=== PATIENT | female | born 1970 ===

== ENCOUNTER 2019-03-03 14:29 | Emergency (ER) | payer BC ==
[2019-03-03 14:41] VITALS: BP 104/69
--- NOTE | 2019-03-03 14:45 | UC ---
Lower Extremity/Ankle HPI - HPI Summary HPI Summary: 48 year old female presenting to laceration to between 5th toe and foot. [place] cut foot on rock when twisting foot. No head injury, no LOC. Unsure of last tetanus. PMH- none, no medications - History of Current Complaint Stated Complaint: R FOOT LAC Time Seen by Provider: 03/03/19 14:37 Hx Obtained From: Patient ?: No Onset/Duration: Sudden Onset, Lasting Minutes Severity Currently: Mild Pain Intensity: 3 Pain Scale Used: 0-10 Numeric Aggravating Factor(s): Standing, Ambulation Alleviating Factor(s): Rest Able to Bear Weight: Yes - Allergies/Home Medications Allergies/Adverse Reactions: Allergies Allergy/AdvReac Type Severity Reaction Status Date / Time No Known Allergies Allergy Verified 03/03/19 14:41 Home Medications: Home Medications NK [No Home Medications Reported] 03/03/19 [History Confirmed 03/03/19] PMH/Surg Hx/FS Hx/Imm Hx Previously Healthy: Yes - Family History Known Family History: Positive: Non-Contributory Review of Systems All Other Systems Reviewed And Are Negative: Yes Constitutional: Positive: Negative ENT: Positive: Negative Cardiovascular: Positive: Negative Genitourinary: Positive: Negative Motor: Positive: Negative Musculoskeletal: Positive: Arthralgia, Decreased ROM, Edema Psychological: Positive: Negative Is Patient Immunocompromised?: No Physical Exam Triage Information Reviewed: Yes Appearance: Well-Appearing, No Pain Distress, Well-Nourished Vital Signs Reviewed: Yes Respiratory: Positive: No respiratory distress, No accessory muscle use Musculoskeletal: Positive: Strength Intact, ROM Intact, No Edema, Other: - full ROM of all toes, ankle, knee R leg, negative homans sign, decrease in sensation to light touch distal 5th toe, full ROM/ strength of 5th toe R without pain.. Negative: Edema @ Skin: Positive: Other - laceration planter 5th toe base Procedures - Laceration/Wound Repair 1 Location: lower extremity - right foot near 5th toe Description: Linear Anesthesia: Local, 2.0%, Lido Length, Depth and Shape: 1 cm x 5mm x 2mm Betadine Prep?: No - chlorhexadine Irrigated w/ Saline (ccs): 60 Laceration/Wound Explored: clean, no foreign body removed Closure: Single Layer Debridement: minimal Suture Type: Nylon Number of Sutures: 4 Layer Closure?: No Sterile Dressing Applied?: No Lower Extremity Course/Dx - Course Course Of Treatment: laceration repair, uncomplicated, tolerated well, 4 sutures placed, bleeding controlled. TDAP given. FU 7-10 days for removal - Differential Dx/Diagnosis Differential Diagnosis/HQI/PQRI: Infection, Osteomyelitis, Sprain, Strain Provider Diagnosis: Laceration of foot, right Discharge - Sign-Out/Discharge Documenting (check all that apply): Patient Departure All imaging exams completed and their final reports reviewed: No Studies - Discharge Plan Condition: Good Disposition: HOME Patient Education Materials: Care For Your Stitches (ED), Laceration (ED) Referrals: No Primary Care Phys,NOPCP [Primary Care Provider] - Additional Instructions: - increase rest, ice to decrease swelling/ pain. Elevate foot higher then heart as much as possible to reduce pain, increase healing - Wrap area as shown to decrease movemnt of toe. Keep area covered- no open toed shoes. - Motrin/ tylenol as needed for pain - MOnitor area daily- return with redness, increased pain, decreased movement, fever, chills - DO not get area wet x 24 hours. avoid soaking, submerging wound until sutures are removed. - 4 sutures to be removed within 7-10 days, return for removal. - Billing Disposition and Condition Condition: GOOD Disposition: Home - Attestation Statements Provider Attestation: I was available for consult. This patient was seen by the JOSE ARMANDO. The patient was not presented to, seen by, or examined by me. -Esau
[2019-03-03] MEDS ORDERED: Lidocaine 2% PF * 5 ML VIAL INJ ONE (14:56)
[2019-03-03] MEDS ORDERED: Tetan/Diph/Pertus SYR(Tdap)* 0.5 ML SYR(BOOSTRIX) use SYR IM ONE (15:30)
== END 2019-03-03 15:51 | disposition home or self-care (01) ==
LOC: UCEAST 14:29
DX: S91.311A Laceration without foreign body, right foot, initial encounter (principal); W26.8XXA Contact with other sharp object(s), not elsewhere classified, initial encounter; Y93.89 Activity, other specified; Y92.828 Other wilderness area as the place of occurrence of the external cause; Y99.8 Other external cause status
CPT/HCPCS: 12001; 90471; 90715; 99211; G0463

== ENCOUNTER 2019-03-04 12:17 | Emergency (ER) | payer BC ==
--- NOTE | 2019-03-04 13:04 | ED ---
Laceration/Wound HPI - HPI Summary HPI Summary: The pt is a 48 yr old female presenting to [facility] c/o of laceration and numbness on her right foot beginning one day [employer]. She was hiking yesterday when she was cut by a flat rock on her right foot. She went to urgent care for the laceration repair but started experiencing sensations of numbness and coldness in her right foot last night after removing the bandage placed over the repair. She denies any tingling sensation before the cut or pain in the foot apart from at the laceration site. She is not currently in pain. There are no aggravating or alleviating factors. updated tetanus. - History of Current Complaint Stated Complaint: FOOT INJURY YESTERDAY FOOT NOW NUMB PER PT Time Seen by Provider: 03/04/19 12:27 Hx Obtained From: Patient Onset/Duration: Lasting Days - starting yesterday, Still Present Aggravating: Nothing Alleviating: Nothing Timing: Constant Onset Severity: Mild Current Severity: None Pain Intensity: 0 Pain Scale Used: 0-10 Numeric Associated Signs & Symptoms: Numbness, Pain - at laceration site - Allergy/Home Medications Allergies/Adverse Reactions: Allergies Allergy/AdvReac Type Severity Reaction Status Date / Time No Known Allergies Allergy Verified 03/04/19 12:40 Home Medications: Home Medications Dextroamphetamine/Amphetamine [Dextroamp-Amphetamin 10 mg Tab] 5 mg PO TID 03/04 [History Confirmed 03/04/19] PMH/Surg Hx/FS Hx/Imm Hx Endocrine/Hematology History: Denies: Hx Diabetes Cardiovascular History: Denies: Hx Hypertension - Surgical History Surgical History: Yes Surgery Procedure, Year, and Place: septoplasty Infectious Disease History: No Infectious Disease History: Denies: Traveled Outside the [place] in Last 30 Days - Family History Known Family History: Positive: Other - Negative - Neurological processes - Social History Alcohol Use: Weekly Hx Substance Use: No Substance Use Type: Reports: None Hx Tobacco Use: No Smoking Status (MU): Never Smoked Tobacco Review of Systems Negative: Fever Positive: Other - Positive - Laceration on right foot Neurological: Other - Positive - tingling Positive: Numbness - At her right foot. All Other Systems Reviewed And Are Negative: Yes Physical Exam - Summary Physical Exam Summary: General: Well appearing, no distress Cardiovascular: Skin is well perfused Pulmonary: No respiratory distress, no tachypnea Abdomen: Non-distended Skin: Well-healing laceration to the plantar surface of the fifth toe MSK: Full range of motion of right ankle and right foot, 2+ DP pulse. No bony tenderness or obvious deformity Psych: Normal affect Neuro: A&Ox3. Sensation is intact to light touch right foot Triage Information Reviewed: Yes Vital Signs On Initial Exam: Initial Vitals Temp Pulse Resp BP Pulse Ox 98.5 F 96 16 128/84 97 03/04/19 12:20 03/04/19 12:20 03/04/19 12:20 03/04/19 12:20 03/04/19 12:20 Vital Signs Reviewed: Yes Diagnostics - Vital Signs Vital Signs Temp Pulse Resp BP Pulse Ox 03/04/19 12:20 98.5 F 96 16 128/84 97 - Laboratory Lab Statement: Any lab studies that have been ordered have been reviewed, and results considered in the medical decision making process. Re-Evaluation - Re-Evaluation First Eval Re-Evaluation Time: 13:04 Comment: I discussed discharge with the patient as the laceration appears to be healing well. She agrees with this plan. Laceration Repair Course/Dx - Course Course Of Treatment: 48-year-old female with recent fifth toe laceration presents with paresthesias. - PE w well-healed laceration to the R fifth digit. 2+ DP pulse, cap refill less than 2 seconds, sensation intact to light touch. - Discussed with patient she could have a peripheral neuropathy secondary to the trauma. No evidence of arterial injury. Patient can follow up with her primary care physician if she has continued symptoms - Clinical Impression Provider Diagnoses: Laceration, Paresthesias Discharge - Sign-Out/Discharge Documenting (check all that apply): Patient Departure - Patient will be discharged home. Patient Received Moderate/Deep Sedation with Procedure: No - Discharge Plan Condition: Stable Disposition: HOME Patient Education Materials: Laceration (ED), Paresthesia (ED) Referrals: [facility] [Outside] - 3 Days [facility] [Outside] - 3 Days Additional Instructions: You were seen in the emergency department for laceration and paresthesias. Please follow up with your primary care doctor in next 2-3 days and return to the emergency department for worsening or concerning symptoms including pain, swelling, or drainage from the area. It was a pleasure taking care of you today. - Billing Disposition and Condition Condition: STABLE Disposition: Home - Attestation Statements Document Initiated by Reji: Yes Documenting Scribe: Didi Campbell Provider For Whom Reji is Documenting (Include Credential): Dr. Poly Collins MD Scribe Attestation: Didi Fontenot, scribed for Dr. Poly Collins MD on 03/04/19 at 1737. Scribe Documentation Reviewed: Yes Provider Attestation: The documentation as recorded by the Didi campos accurately reflects the service I personally performed and the decisions made by me, Dr. Poly Collins MD Status of Scribe Document: Viewed
[2019-03-04 13:16] VITALS: BP 115/71
== END 2019-03-04 13:14 | disposition home or self-care (01) ==
LOC: ED 12:17
DX: S91.311A Laceration without foreign body, right foot, initial encounter (principal); R20.2 Paresthesia of skin; W45.8XXA Other foreign body or object entering through skin, initial encounter; Y93.01 Activity, walking, marching and hiking; Y92.9 Unspecified place or not applicable; Z79.899 Other long term (current) drug therapy
CPT/HCPCS: 99282